=== PATIENT | male | born 1955 | race Caucasian/White ===

== ENCOUNTER → 2022-01-01 | Outpatient (CLI) | payer MEDICARE ==
[~2022-01-01] MED LIST: AMLODIPINE BESY10 MG PO; LISINOPRIL10 MG PO; ULTRAM50 MG PO
== END ==
LOC: EMI 15:35
DX: M25.312 Other instability, left shoulder (principal); M19.012 Primary osteoarthritis, left shoulder
CPT/HCPCS: 73221